=== PATIENT | male | born 1965 | race Caucasian/White ===

== ENCOUNTER 2016-12-23 12:41 | Inpatient (IN) | payer OTHER ==
[2016-12-23] MEDS ORDERED: NS 1,000 ML IV SCH (13:15)
[2016-12-23] MEDS ORDERED: oxyCODONE IR 5 MG TAB PO PRN (14:39)
[2016-12-23] MEDS ORDERED: ONDANSETRON DISINTEGRATING 4 MG TAB PO PRN (14:39)
[2016-12-23] MEDS ORDERED: ceFAZolin 2 GM/DEXTROSE 100 ML IV ONE (15:05)
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
--- NOTE | 2016-12-23 15:08 | DX ---
Chest, AP, 2 portable views History: Preoperative evaluation, acute left hip fracture Comparison: 11/04/2012 Findings: Lungs are clear, without infiltrate , consolidation or evidence for fat embolism. Heart siz e is normal. There is no adenopathy or mass lesion. There is no pleural effusion or pneumothorax. Bon es are unremarkable for age. Impression: No evidence for fat embolism. No contraindication to left hip surgery.
[2016-12-23 15:09] LABS: HEMATOCRIT 46.6 % (40.0-51.0); HEMOGLOBIN 15.7 g/dL (13.7-17.5)
[2016-12-23 15:15] LABS: PROTIME(PATIENT) 13.1 SEC (12.0-15.0)
[2016-12-23 15:22] LABS: ANION GAP 11 mEq/L (8-16); CALCIUM 9.4 mg/dL (8.5-10.4); CARBON DIOXIDE 23 mEq/l (22-31); CHLORIDE 104 mEq/L (97-110); CREATININE 0.8 mg/dL (0.7-1.3); GLOMERULAR FILTRATION RATE > 60; GLUCOSE 95 mg/dL (70-100); POTASSIUM 4.5 mEq/L (3.5-5.2); SODIUM 138 mEq/L (134-144)
--- NOTE | 2016-12-23 15:55 | CPEKG ---
Heart Rate: 66 RR Interval: 909 P-R Interval: 208 QRSD Interval: 94 QT Interval: 420 QTC Interval: 441 P [place]: 62 QRS [place]: 69 T Wave [place]: -3 EKG Severity - OTHERWISE NORMAL ECG - EKG Impression: SINUS RHYTHM EKG Impression: LOW VOLTAGE IN FRONTAL LEADS Electronically Signed By: Isma Higuera 24-Dec-2016 11:09:18
[2016-12-23 16:18] LABS: COLOR YELLOW; LEUKOCYTE ESTERASE,URINE NEGATIVE (NEGATIVE); NITRITE,URINE NEGATIVE (NEGATIVE)
[2016-12-23] MEDS ORDERED: CEFAZOLIN 2 GM/DEXTROSE/100 ML BAG IV ONE (20:07)
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
[2016-12-23] MEDS ORDERED: fentaNYL 100 MCG/2 ML INJ ONE (22:17)
[2016-12-23] MEDS ORDERED: PROPOFOL 200 MG/20 ML VIAL ONE ×2 (22:17)
[2016-12-23] MEDS ORDERED: LIDOCAINE 2% 100 MG/5 ML SYR IVP ONE (22:20)
[2016-12-23] MEDS ORDERED: POLYMYXIN B SULFATE 500,000 UNIT/10 ML SYR IRR ONE (23:30)
[2016-12-23] MEDS ORDERED: BACITRACIN 50,000 UNITS/10 ML SYR IRR ONE (23:31)
[2016-12-23] MEDS ORDERED: MIDAZOLAM 2 MG/2 ML VIAL ONE (23:38)
[2016-12-24] MEDS ORDERED: DEXAMETHASONE 4 MG/ML VIAL ONE (00:19)
[2016-12-24] MEDS ORDERED: ONDANSETRON 4 MG/2 ML VIAL ONE (00:20)
[2016-12-24] MEDS ORDERED: HYDROmorphONE/DILAUDID 2 MG/ML SYR ONE (00:21)
[2016-12-24] MEDS ORDERED: SUGAMMADEX SODIUM 200 MG/2 ML VIAL IVP ONE (01:10)
[2016-12-24] MEDS ORDERED: BUPIVACAINE/EPI 0.5% 30 ML SDV ONE (01:29)
--- NOTE | 2016-12-24 01:42 | POSTOPPROG ---
Post Op Note Date of Operation: 12/24/16 Surgeon: Percy Day Mine Motor Operator: Lisandro Francis Anesthesia: LMA Pre-op Diagnosis: Left femoral neck fracture Post-op Diagnosis: Same Procedure: L Hip Hemiarthroplasty Findings: Gael omnifit 10 Press fit stem, Bipolar 54mm head Inf/Abcess present in the surg proc area at time of surgery?: No EBL: 100-500 Complications: None Specimen(s): Fem Head
[2016-12-24] MEDS ORDERED: DIPHENOXYLATE/ATROPINE LOMOTIL 1 TAB PO PRN (01:46)
[2016-12-24] MEDS ORDERED: METOCLOPRAMIDE 10 MG/2 ML VIAL IVP PRN (01:46)
[2016-12-24] MEDS ORDERED: diphenhydrAMINE 25 MG CAP PO PRN (01:46)
[2016-12-24] MEDS ORDERED: TEMAZEPAM 15 MG CAP PO PRN (01:46)
[2016-12-24] MEDS ORDERED: PROMETHAZINE HCL 25 MG/ML INJ IVP PRN (01:46)
[2016-12-24] MEDS ORDERED: KETOROLAC 30 MG/1 ML SDV IVP PRN (01:46)
[2016-12-24] MEDS ORDERED: CYCLOBENZAPRINE 10 MG TAB PO PRN (01:46)
[2016-12-24] MEDS ORDERED: POLYETHYLENE GLYCOL 3350 17 GM PKT PO PRN (01:46)
[2016-12-24] MEDS ORDERED: MAGNESIUM HYDROXIDE 30 ML UDCUP PO PRN (01:46)
[2016-12-24] MEDS ORDERED: BISACODYL 10 MG SUPP PR PRN (01:46)
[2016-12-24] MEDS ORDERED: LACTULOSE 20 GM/30 ML UDCUP PO PRN (01:46)
[2016-12-24] MEDS ORDERED: PHARMACY PAIN CONSULT 1 EA MISC PRN (01:46)
[2016-12-24] MEDS ORDERED: LR 1,000 ML IV SCH (02:00)
[2016-12-24] MEDS: ceFAZolin 2 GM in D5W 100 ML IV SCH ×3 (05:29→20:48)
[2016-12-24 05:33] VITALS: RESP 16
[2016-12-24] MEDS ORDERED: ceFAZolin 2 GM/DEXTROSE 100 ML IV SCH (06:00)
[2016-12-24] MEDS ORDERED: MULTIVITAMINS 1 EACH TAB PO SCH (09:00)
[2016-12-24] MEDS: SENNOSIDES/DOCUSATE SODIUM TAB PO SCH ×2 (10:21→20:50)
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
[2016-12-24] MEDS: ACETAMINOPHEN 325 MG TAB PO PRN ×2 (11:38→17:38)
[2016-12-24 12:52] LABS: HEMATOCRIT 40.8 % (40.0-51.0); HEMOGLOBIN 13.6 g/dL (13.7-17.5)
--- NOTE | 2016-12-24 13:46 | SOAPPROG ---
SOAP Progress Note Assessment/Plan: Assessment/Plan: 1. Left femoral neck fracture S/p left hip bipolar hemiarthroplasty performed by Dr. Day on 12/23-06/2017 POD#1 -Cont PT/OT, pt will remain TDWB on LLE -Cont current PO pain medications as tolerated -Cont SCDs and TEDs for VTE mechanical prophylaxis -Cont Lovenox x 21 days for VTE chemoprophylaxis -Ok to d/c to home from ortho standpoint after patient has completed his postop ABX treatment (3 doses Ancef) 12/24/16 13:41 12/24/16 13:48 Subjective: Pt seen at bedside. No significant complaints of pain, though pt does note some increased discomfort and fatigue after working with PT/OT. He states he has been compliant with his TDWB status of his LLE. He denies any ch, dizziness , syncope, cp, sob, increased wob, abd pain, post calf pain bilaterally, or n/ t. He also denies any f/c/n/v. He states he is tolerating his medications and diet well. He is anxious to go home as soon as possible. He has no additional concerns or complaints at this time. Objective: Vital Signs Temp Pulse Resp BP Pulse Ox 36.9 C 74 16 122/67 H 93 12/24/16 12:20 12/24/16 12:20 12/24/16 12:20 12/24/16 12:20 12/24/16 12:20 Laboratory Results 12/24/16 12:39 12/23/16 14:54 12/23/16 12/24/16 12/25/16 05:59 05:59 05:59 Intake Total 2615 Output Total 1610 Balance 1005 PT 13.1 SEC (12.0-15.0) 12/23/16 14:54 INR 1.00 (0.83-1.16) 12/23/16 14:54 Pt seen at bedside. A&Ox3, appropriate mood and affect, pleasant and cooperative with today's exam. Exam of LLE reveals intact post-operative dressings, reinforced, dry, intact frantz. No significant erythema, calor or induration noted. Thigh compartments are soft, mild swelling noted. Pt moves leg well. Post calves are NTTP bilat, no palpable vascular cords, neg Alvina's bilat. DNVI BLE. ICD10 Worksheet Patient Problems: Problems Problem Status Diagnosed Left displaced femoral neck fracture Acute
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
[2016-12-24 15:26] VITALS: TEMP 98.9
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
[2016-12-24 19:42] VITALS: BP 134/71; PULSE 83; O2SAT 92
[2016-12-24] MEDS ORDERED: FAMOTIDINE 20 MG TAB PO SCH (21:00)
[2016-12-25] MEDS ORDERED: RIVAROXABAN 10 MG TAB PO SCH (09:00)
[2016-12-25] MEDS ORDERED: ENOXAPARIN 40 MG/0.4 ML SYR SC SCH (09:00)
== END 2016-12-24 21:47 | disposition home or self-care (01) | DRG 470 ==
LOC: F3N 13:58 → OBSVTOIN 13:58
PROVIDERS: ADMIT Student in an Organized Health Care Education/Training Program; ATTEND Student in an Organized Health Care Education/Training Program
PROC: 0SRS03Z Replacement of Left Hip Joint, Femoral Surface with Ceramic Synthetic Substitute, Open Approach (ICD-10-PCS; principal; 2016-12-24)
DX: S72.002A Fracture of unspecified part of neck of left femur, initial encounter for closed fracture (principal); V18.0XXA Pedal cycle driver injured in noncollision transport accident in nontraffic accident, initial encounter; Y92.828 Other wilderness area as the place of occurrence of the external cause
CPT/HCPCS: 97116-GP; 97161-GP; 97165-GO; J0690; J1100; J1170; J2001; J2250; J2405; J2704; J3010

== ENCOUNTER → 2016-12-23 | Outpatient (CLI) | payer OTHER ==
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
== END ==
LOC: BMCIMAGING 11:29
PROVIDERS: ATTEND Family Medicine
DX: S72.012A Unspecified intracapsular fracture of left femur, initial encounter for closed fracture (principal); V19.3XXA Pedal cyclist (driver) (passenger) injured in unspecified nontraffic accident, initial encounter; Y93.55 Activity, bike riding

== ENCOUNTER 2017-10-14 18:46 | Emergency (ER) | payer OTHER ==
[2017-10-14 19:09] VITALS: RESP 18
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
[2017-10-14 20:16] VITALS: BP 114/76; PULSE 64; TEMP 98.8; O2SAT 98
== END 2017-10-14 20:14 | disposition home or self-care (01) ==
DX: S52.531A Colles' fracture of right radius, initial encounter for closed fracture (principal); S52.691A Other fracture of lower end of right ulna, initial encounter for closed fracture; W18.39XA Other fall on same level, initial encounter
CPT/HCPCS: A4565